=== PATIENT | female | born 1965 | race Caucasian/White ===

== ENCOUNTER 2020-01-12 19:25 | Emergency (ER) | payer BC ==
[~2020-01-12] VITALS: Ht 157.5 cm; Wt 72.6 kg
[2020-01-12 19:42] VITALS: BP_SYST 144
--- NOTE | 2020-01-12 19:44 | NUR ---
Patient to ER bed 05 to gown for evaluation. Side rails up. Report given to DERECK MORENO
--- NOTE | 2020-01-12 19:45 | NUR ---
KAMINI Swartz at bedside examining patient.
--- NOTE | 2020-01-12 19:46 | NUR ---
Patient came to ER with family. C/O bilateral flank pain x 1 day. Patient had bilateral flanks pain, pain rate 6/10, urinary frequency, nausea, vomitting.
[2020-01-12] MEDS ORDERED: cefTRIAXone 1 GM in LIDOCAINE 1%, 20 ML MDV 2.1 ML IM ONE (20:00)
[2020-01-12 20:03] VITALS: BP_SYST 144
--- NOTE | 2020-01-12 20:03 | NUR ---
Patient given written and verbal discharge instructions and verbalizes understanding. ER MD discussed with patient the results and treatment provided. Patient in stable condition. ID arm band removed. Rx of CIPRO given. Patient educated on pain management and to follow up with PMD. Pain Scale 0/10 Opportunity for questions provided and answered. Medication side effect fact sheet provided.
[2020-01-12 20:23] LABS: BILIRUBIN,URINE NEGATIVE (NEGATIVE); CLARITY/URINE HAZY (CLEAR); COLOR,URINE YELLOW (YELLOW); GLUCOSE,URINE NEGATIVE (NEGATIVE); KETONES,URINE NEGATIVE (NEGATIVE); PROTEIN URINE NEGATIVE (NEGATIVE)
[2020-01-12 20:24] LABS: BLOOD, URINE TRACE (NEGATIVE); LEUKOCYTE ESTERASE ,URINE 3+ (NEGATIVE); NITRITE, URINE NEGATIVE (NEGATIVE); UROBILINOGEN,URINE 0.2 (0.2-1.0)
[2020-01-12 20:26] LABS: BACTERIA,URINE FEW /HPF (None Seen); RBC,URINE 0-3 /HPF (0-3); WBC,URINE 20-50 /HPF (0-3)
[2020-01-12 20:27] LABS: MUCUS,URINE None Seen /LPF (None Seen)
== END 2020-01-12 20:03 | disposition home or self-care (01) ==
LOC: SED 19:25
DX: N12 Tubulo-interstitial nephritis, not specified as acute or chronic (principal)
CPT/HCPCS: 81000; 81025; 87086; 96372; 99283; J0696; J2001